=== PATIENT | male | born 1995 | race Caucasian/White ===

== ENCOUNTER 2020-01-21 08:18 | Emergency (ER) | payer OTHER ==
[2020-01-21] MEDS ORDERED: ONDANSETRON 4 MG (ODT) TAB ONE (09:20)
[2020-01-21 09:32] VITALS: TEMP 98.5
[2020-01-21 09:34] VITALS: BP 122/73; O2SAT 99
--- NOTE | 2020-01-22 18:46 | EDPHYS ---
Physician Documentation [facility] Name: Marcos Frazier Age: 24 yrs Sex: Male : 1995 Arrival Date: 01/21/2020 Time: 08:20 Bed 13 Private MD: ED Physician Osman Joiner HPI: 01/20 09:06 This 24 yrs old Male presents to ER via Ambulatory with complaints of pm1 Abdominal Pain. 09:06 The patient presents to the emergency department with vomiting, 5 times since the onset pm1 of symptoms, diarrhea, 5 times since the onset of symptoms, abdominal pain, of the right lower quadrant and left lower quadrant, described as crampy, and does not radiate. Onset: The symptoms/episode began/occurred this morning. Possible causes: unknown. The symptoms are aggravated by nothing. The symptoms are alleviated by nothing. Associated signs and symptoms: Pertinent positives: small amount of bright red blood on toilet paper with wiping, Pertinent negatives: constipation, dysuria, fever. Severity of symptoms: in the emergency department the symptoms have improved. The patient has not recently seen a physician. Patient was sent to the ER for evaluation by his employer. Historical: - Allergies: 08:44 No Known Allergies; iw - Home Meds: 08:44 None [Active]; iw - PMHx: 08:44 None; iw - PSHx: 08:44 left side of face; iw - Immunization history:: Adult Immunizations. - Social history:: Smoking status: Patient denies any tobacco usage or history of. ROS: 09:06 Constitutional: Negative for fever, chills, and weight loss, Cardiovascular: Negative pm1 for chest pain, palpitations, and edema, Respiratory: Negative for shortness of breath, cough, wheezing, and pleuritic chest pain. 09:06 Back: Negative for injury and pain, : Negative for injury, bleeding, discharge, and swelling, MS/Extremity: Negative for injury and deformity, Skin: Negative for injury, rash, and discoloration, Neuro: Negative for headache, weakness, numbness, tingling, and seizure. 09:06 Abdomen/GI: Positive for abdominal pain, nausea, vomiting, and diarrhea, Negative for constipation. Exam: 09:06 Constitutional: This is a well developed, well nourished patient who is awake, alert, pm1 and in no acute distress. Head/Face: Normocephalic, atraumatic. Neck: Trachea midline, no thyromegaly or masses palpated, and no cervical lymphadenopathy. Supple, full range of motion without nuchal rigidity, or vertebral point tenderness. No Meningismus. Chest/axilla: Normal chest wall appearance and motion. Nontender with no deformity. No lesions are appreciated. 09:06 Back: No spinal tenderness. No costovertebral tenderness. Full range of motion. Skin: Warm, dry with normal turgor. Normal color with no rashes, no lesions, and no evidence of cellulitis. MS/ Extremity: Pulses equal, no cyanosis. Neurovascular intact. Full, normal range of motion. 09:06 Cardiovascular: Exam negative for acute changes, Rate: normal, Rhythm: regular, Pulses: no pulse deficits are appreciated. 09:06 Respiratory: Exam negative for acute changes, respiratory distress, shortness of breath. 09:06 Abdomen/GI: Inspection: abdomen appears normal, Palpation: abdomen is soft and non-tender, in all quadrants, mass, is not appreciated, rebound tenderness, is not appreciated. 09:06 Neuro: Exam negative for acute changes, Orientation: is normal, Motor: is normal, moves all fours. Vital Signs: 08:37 BP 126 / 82; Pulse 69; Resp 16; Temp 98.5(TE); Pulse Ox 98% on R/A; Weight 83.91 kg; iw Height 5 ft. 7 in. (170.18 cm); Pain 7/10; 09:20 BP 122 / 73; Pulse 72; Resp 16 S; Pulse Ox 99% on R/A; ca1 08:37 Body Mass Index 28.97 (83.91 kg, 170.18 cm) iw MDM: 08:47 Patient medically screened. pm1 09:05 Data reviewed: vital signs. Data interpreted: Pulse oximetry: on room air is 98 %. pm1 Interpretation: normal. 09:05 ED course: Patient does not want any labs, CT scan, or IV fluids. He said that he does pm1 not feel dehydrated. He would like something for vomiting and 1-2 days off. He was sent here for evaluation by his job. 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 Administered Medications: 09:13 Drug: Ondansetron (Zofran) 4 mg Route: PO; ca1 09:19 Follow up: Response: Medication administered at discharge. ca1 Disposition: 14:35 Co-signature as Attending Physician, Osman Joiner MD I agree with the assessment and kdr plan of care. Disposition: 01/21/20 09:09 Discharged to Home. Impression: Diarrhea, unspecified, Vomiting, unspecified, Unspecified abdominal pain. - Condition is Stable. - Discharge Instructions: Abdominal Pain, Adult, Food Choices to Help Relieve Diarrhea, Adult, Diarrhea, Adult, Nausea and Vomiting, Adult, Viral Gastroenteritis, Adult. - Prescriptions for Zofran ODT 4 mg Oral tablet,disintegrating - place 1 tablet by TRANSLINGUAL route every 8 hours As needed; 20 tablet. Bentyl 20 mg Oral Tablet - take 1 tablet by ORAL route every 6 hours As needed; 20 tablet. - Work release form, Medication Reconciliation Form, Thank You Letter, Antibiotic Education, Prescription Opioid Use form. - Follow up: Emergency Department; When: As needed; Reason: Worsening of condition. Follow up: Private Physician; When: 2 - 3 days; Reason: Recheck today's complaints, Continuance of care, Re-evaluation by your physician. - Problem is new. - Symptoms have improved. Signatures: Osman Joiner MD MD kdr Jennifer Carter RN RN iw Sonny Monaco NP POPULATION GENETICIST pm1 Acob, Micki RN RN ca1 Corrections: (The following items were deleted from the chart) 09:12 09:09 01/21/2020 09:09 Discharged to Home. Impression: Diarrhea, unspecified; Vomiting, pm1 unspecified. Condition is Stable. Forms are Medication Reconciliation Form, Thank You Letter, Antibiotic Education, Prescription Opioid Use. Follow up: Emergency Department; When: As needed; Reason: Worsening of condition. Follow up: Private Physician; When: 2 - 3 days; Reason: Recheck today's complaints, Continuance of care, Re-evaluation by your physician. Problem is new. Symptoms have improved. pm1 09:20 09:12 01/21/2020 09:09 Discharged to Home. Impression: Diarrhea, unspecified; Vomiting, ca1 unspecified; Unspecified abdominal pain. Condition is Stable. Discharge Instructions: Food Choices to Help Relieve Diarrhea, Adult, Diarrhea, Adult, Nausea and Vomiting, Adult, Viral Gastroenteritis, Adult. Prescriptions for Zofran ODT 4 mg Oral tablet,disintegrating - place 1 tablet by TRANSLINGUAL route every 8 hours As needed; 20 tablet, Bentyl 20 mg Oral Tablet - take 1 tablet by ORAL route every 6 hours As needed; 20 tablet. and Forms are Medication Reconciliation Form, Thank You Letter, Antibiotic Education, Prescription Opioid Use, Work release form. Follow up: Emergency Department; When: As needed; Reason: Worsening of condition. Follow up: Private Physician; When: 2 - 3 days; Reason: Recheck today's complaints, Continuance of care, Re-evaluation by your physician. Problem is new. Symptoms have improved. pm1
--- NOTE | 2020-01-22 18:46 | ER ---
Nurse's Notes [facility] Name: Marcos Frazier Age: 24 yrs Sex: Male : 1995 Arrival Date: 01/21/2020 Time: 08:20 Bed 13 Private MD: Diagnosis: Diarrhea, unspecified;Vomiting, unspecified;Unspecified abdominal pain Presentation: 01/20 08:41 Chief complaint: Patient states: last night had some bad abd cramping and diarrhea, had iw some blood in it and vomited all night, has gotten better this morning, last episode of diarrhea was 2 hours ago, last vomited at 530 this morning, reports intermittent cramping. Coronavirus screen: Proceed with normal triage. Patient denies a cough. Patient denies shortness of breath or difficulty breathing. Patient denies measured and/or subjective temperature greater than 100.4F prior to today's visit. Patient denies travel on a cruise ship or to a country the [facility] currently lists as an affected area. Patient denies contact with known and/or suspected case of COVID-19. Ebola Screen: Patient negative for fever greater than or equal to 101.5 degrees Fahrenheit, and additional compatible Ebola Virus Disease symptoms Patient denies exposure to infectious person. Patient denies travel to an Ebola-affected area in the 21 days before illness onset. No symptoms or risks identified at this time. Initial Sepsis Screen: Does the patient meet any 2 criteria? No. Patient's initial sepsis screen is negative. Does the patient have a suspected source of infection? No. Patient's initial sepsis screen is negative. Risk Assessment: Do you want to hurt yourself or someone else? Patient reports no desire to harm self or others. Note traveled from [place] on . Onset of symptoms was January 21, 2020. 08:41 Method Of Arrival: Ambulatory iw 08:41 Acuity: ADEN 3 iw Historical: - Allergies: 08:44 No Known Allergies; iw - Home Meds: 08:44 None [Active]; iw - PMHx: 08:44 None; iw - PSHx: 08:44 left side of face; iw - Immunization history:: Adult Immunizations. - Social history:: Smoking status: Patient denies any tobacco usage or history of. Screenin:08 Abuse screen: Denies threats or abuse. Denies injuries from another. Nutritional ca1 screening: No deficits noted. Tuberculosis screening: No symptoms or risk factors identified. Fall Risk IV access (20 points). Assessment: 09:08 General: Appears in no apparent distress. comfortable, Behavior is calm, cooperative, ca1 appropriate for age. Pain: Complains of pain in right upper quadrant Pain does not radiate. Pain currently is 2 out of 10 on a pain scale. Quality of pain is described as crampy, Pain began midnight Is intermittent. Neuro: Level of Consciousness is awake, alert, obeys commands, Oriented to person, place, time, situation, Appropriate for age. Cardiovascular: Heart tones S1 S2 present Capillary refill < 3 seconds Patient's skin is warm and dry. Respiratory: Airway is patent Respiratory effort is even, unlabored, Respiratory pattern is regular, symmetrical, Breath sounds are clear bilaterally. GI: Abdomen is round non-distended, Bowel sounds present X 4 quads. Abd is soft and non tender X 4 quads. Reports diarrhea, nausea, vomiting. : No signs and/or symptoms were reported regarding the genitourinary system. EENT: No signs and/or symptoms were reported regarding the EENT system. Derm: Skin is intact, is healthy with good turgor, Skin is pink, warm \T\ dry. Musculoskeletal: Circulation, motion, and sensation intact. Capillary refill < 3 seconds. Vital Signs: 08:37 BP 126 / 82; Pulse 69; Resp 16; Temp 98.5(TE); Pulse Ox 98% on R/A; Weight 83.91 kg; iw Height 5 ft. 7 in. (170.18 cm); Pain 7/10; 09:20 BP 122 / 73; Pulse 72; Resp 16 S; Pulse Ox 99% on R/A; ca1 08:37 Body Mass Index 28.97 (83.91 kg, 170.18 cm) iw ED Course: 08:20 Patient arrived in ED. as 08:43 Triage completed. iw 08:44 Arm band placed on. iw 08:46 Sonny Monaco NP is PHCP. pm1 08:46 Osman Joiner MD is Attending Physician. pm1 08:52 Micki Brown, INA is Primary Nurse. ca1 09:08 Patient has correct armband on for positive identification. Pulse ox on. NIBP on. Warm ca1 blanket given. : No provider procedures requiring assistance completed. Patient did not have IV access ca1 during this emergency room visit. Administered Medications: :13 Drug: Ondansetron (Zofran) 4 mg Route: PO; ca1 :19 Follow up: Response: Medication administered at discharge. ca1 Outcome: Discharge ordered by . pm1 :20 Discharged to home ambulatory. ca1 :20 Condition: stable :20 Discharge instructions given to patient, Instructed on discharge instructions, follow up and referral plans. medication usage, Demonstrated understanding of instructions, follow-up care, medications, Prescriptions given X 2. 09:20 Patient left the ED. ca1 Signatures: Shala Antoine Irene, RN RN iw Sonny Monaco NP NIGHT TIME NANNY pm1 Micki Brown RN RN ca1
== END 2020-01-21 09:20 | disposition home or self-care (01) ==
LOC: ER 08:18
DX: R19.7 Diarrhea, unspecified (principal); R11.10 Vomiting, unspecified
CPT/HCPCS: 99283